=== PATIENT | male | born 1965 | race Caucasian/White ===

== ENCOUNTER 2023-08-26 09:03 | Outpatient (CLI) | payer OTHER, SELFPAY ==
--- NOTE | ~2023-08-26 | XR_ITS ---
EXAMINATION: XR ankle LT min 3V DATE: 08/26/2023 09:30 INDICATION: Left ankle fracture, sequela. Chronic left ankle pain. TECHNIQUE: 5 views of left ankle were obtained. COMPARISON: Left ankle radiographs 05/05/2007 FINDINGS: Bone alignment is normal. No acute fracture. There is diffuse osteopenia. There is an old h ealed fracture of calcaneus with internal fixation with plate and multiple screws. There is mild ankl e joint osteoarthritis. The subtalar joint is obscured by the instrumentation. There is ankle soft ti ssue swelling. IMPRESSION: 1. Mild ankle joint osteoarthritis. Reviewed, dictated and finalized at location A.
== END 2023-08-26 09:04 | disposition home or self-care (01) ==
DX: M19.072 Primary osteoarthritis, left ankle and foot (principal); S82.892S Other fracture of left lower leg, sequela
CPT/HCPCS: 73610

== ENCOUNTER 2023-09-04 11:57 | Outpatient (CLI) | payer OTHER, SELFPAY ==
--- NOTE | ~2023-09-04 | XR_ITS ---
EXAMINATION: XR toe 1st LT min 2V DATE: 09/04/2023 12:19 INDICATION: Left great toe pain, swelling and bruising post injury TECHNIQUE: Dorsal plantar, lateral and 2 oblique views of the left great toe were obtained. COMPARISON: Left foot radiographs dated 05/05/2007 FINDINGS: Diffuse osteopenia. Incompletely visualized internal fixation at the hindfoot likely involving the ca lcaneus with dorsal malleable plate and screws and 4 additional cannulated cancellous screws. No acut e fracture. Polyarticular osteoarthritis, moderate severity at the first interphalangeal joint and mi ld at the left ankle and majority of the remaining joints in the visualized left foot. IMPRESSION: 1. Incompletely visualized internal fixation at the left calcaneus. No evident acute osseous abnormal ity. 2. Mild to moderate polyarticular osteoarthritis throughout the left foot and ankle greatest at the f irst interphalangeal joint. Reviewed, dictated and finalized at location A. IMPRESSION: 1. Incompletely visualized internal fixation at the left calcaneus. No evident acute osseous abnormality. 2. Mild to moderate polyarticular osteoarthritis throughout the left foot and a nkle greatest at the first interphalangeal joint.
== END 2023-09-04 11:58 | disposition home or self-care (01) ==
LOC: ANHIMG 12:01
PROVIDERS: Visit Provider Internal Medicine
DX: M19.072 Primary osteoarthritis, left ankle and foot (principal)
CPT/HCPCS: 73660

== ENCOUNTER 2023-09-11 12:11 | Observation (INO) | payer OTHER, SELFPAY ==
[2023-09-11] VITALS (16 sets, daily range): BP systolic 122–174; BP diastolic 77–154; PULSE 62–90; RESP 16–19; TEMP 36.2–36.9; O2SAT 90–100; BMI 31.3
--- NOTE | ~2023-09-11 | XR_ITS ---
Portable chest x-ray Comparison: 10/23/2016 Clinical History: Cough Findings: Stable probable basilar scarring. No other consolidation or pleural effusion evident. Car diomediastinal silhouette is stable. Bones and soft tissues are unremarkable. Impression: No definite acute abnormality. Probable left basilar scarring, similar to prior exam. Reviewed, dictated and finalized at [facility]. Impression: No definite acute abnormality. Probable left basilar scarring, similar to prior exam.
[2023-09-11] MEDS: ALBUTEROL SULFATE NEB 2.5 MG/3 ML INH 15 MG INHALATION (12:55)
[2023-09-11] MEDS: IPRATROPIUM BR 0.02% INH SOLN 0.5 MG/2.5 ML VIAL 1 MG INHALATION (12:55)
[2023-09-11 13:04] LABS: Basophils Percent Auto 0.2 % (0.2-1.2); Eosinophils Absolute Auto 0.1 K/mm3 (0-0.3); Hematocrit 43.4 % (42.0-52.0); Hemoglobin 13.6 g/dL (14.0-18.0); Immature Granulocyte Absolute 0.05 K/mm3 (0.00-0.031); Immature Granulocyte Percent A 0.8 % (0-0.5); Lymphocytes Absolute Auto 1.73 K/mm3 (0.9-3.2); Lymphocytes Percent Auto 28.9 % (18.3-44.2); Mean Corpuscular HGB Conc 31.3 g/dl (32-36); Mean Corpuscular Hemoglobin 28.2 pg (26-34); Mean Corpuscular Volume 89.9 fl (80-100); Mean Platelet Volume 8.7 fl (7.4-10.4); Monocytes Absolute Auto 0.4 K/mm3 (0.1-0.6); Monocytes Percent Auto 6.7 % (2.6-8.5); Neutrophils Absolute Auto 3.7 K/mm3 (1.3-6.7); Neutrophils Percent Auto 62.4 % (45.5-73.1); Platelet Count Result 268 k/mm3 (150-375); Red Blood Count 4.83 M/mm3 (4.6-6.20); Red Cell Distribution Width 13.9 % (11.5-14.5)
[2023-09-11] MEDS: predniSONE 20 MG TABLET 40 MG PO (13:07)
[2023-09-11 13:13] LABS: Anion Gap 5 mmol/L (4-12); Blood Urea Nitrogen 16 mg/dL (9-20); Calcium 8.6 mg/dL (8.4-10.2); Carbon Dioxide 29 mmol/L (22-30); Chloride 104 mmol/L (98-107); Estimated CRCL calculation 116 ml/min; Estimated Glomerular Filt Rate > 60; Glucose 103 mg/dL (65-110); Potassium 4.4 mmol/L (3.4-5.0); Sodium 138 mmol/L (137-145)
--- NOTE | 2023-09-11 13:16 | ED.URI ---
HPI - URI/Sore Throat General Chief Complaint: Upper Respiratory Infection Stated Complaint: congestion Time Seen by Provider: 09/11/23 12:40 History of Present Illness HPI Narrative: Patient presenting with URI symptoms for the last few days including cough and wheezing with productive cough that has started improving, he does have history of COPD, was found to have low oxygen so sent to the ER Related Data Allergies Allergy/AdvReac Type Severity Reaction Status Date / Time risperidone Allergy Intermediate Anxiety Verified 01/15/17 11:04 No Known Allergies Allergy Unverified 06/17/11 09:41 Review of Systems Review of Systems: All systems reviewed & are unremarkable except as noted in HPI and below PMFSH Family History Family History (Updated 12/16/16 @ 10:35 by DOCTOR UNKNOWN) Mother Patient's mother is in good health Sibling Patient's sister is in good health Patient's brother is in good health Father Family history of malignant neoplasm Other Family history of mental disorder Hypertension Social History Social History Smoking status: Never smoker Smoking end date: 04/27/06 Alcohol intake: never Exam Narrative: EXAMINATION OF ORGAN SYSTEMS/BODY AREAS: Constitutional: Vital signs per nursing GENERAL:[No acute distress, non-toxic appearing.] HEAD: Normal with no signs of head trauma. EYES: EOMI, conjunctiva normal ENT: Hearing grossly intact LUNGS: Coarse lung sounds with end expiratory wheezing HEART: [Regular rate and rhythm] ABD: [Soft], [nontender to palpation] EXT: Normal range of motion SKIN: [No rashes or lesions.] NEURO: [Alert and oriented x 3. No gross focal sensory or strength deficits.] PSYCH: Normal affect Course Vital Signs Vital signs: Vital Signs Temperature 98.4 F 09/11/23 12:13 Pulse Rate 76 09/11/23 12:13 Respiratory Rate 18 09/11/23 12:13 Blood Pressure 142/77 H 09/11/23 12:13 Pulse Oximetry 95 09/11/23 12:13 Oxygen Delivery Room Air 09/11/23 12:13 Temperature 98.4 F 09/11/23 12:13 Pulse Rate 88 09/11/23 16:31 Respiratory Rate 16 09/11/23 16:31 Blood Pressure 140/81 09/11/23 16:31 Pulse Oximetry 94 09/11/23 16:31 Oxygen Delivery Nasal Cannula 09/11/23 13:00 Oxygen Flow Rate 1 09/11/23 13:00 MDM - URI/Sore Throat MDM Narrative Medical decision making narrative: ED COURSE AND MEDICAL DECISION MAKIN) Differential diagnosis: COPD, pneumonia 2) Comorbidities: COPD, fentanyl use disorder 3) External notes reviewed: PCP notes 4) History sources independently obtained from: Dr. Zayas 5) Discussion of management with: Hospitalist 6) Independent interpretation of: Chest x-ray, no obvious consolidations 7) Diagnostic tests or therapies considered but not ordered: N/a 8) Social determinants of health: n/a 9) Shared decision makin-year-old male with acute dyspnea and wheezing likely due to acute COPD exacerbation based on history and exam. Patient is hemodynamically stable. Nebulizer treatments are started and steroids given orally. Patient monitored in the ED for a couple of hours and on reevaluation is feeling significantly better. No respiratory distress or accessory muscle use. Good air movement bilateral lungs. He unfortunately is still slightly hypoxic requiring 2 L of nasal cannula to maintain saturation above 92%. Discussed with hospitalist for admission. Lab Data 09/11/23 12:57 09/11/23 12:57 Labs: Lab Results 09/11/23 09/11/23 Range/Units 12:45 12:57 WBC 6.0 (4.5-10.0) K/mm3 RBC 4.83 (4.6-6.20) M/mm3 Hgb 13.6 L (14.0-18.0) g/dL Hct 43.4 (42.0-52.0) % MCV 89.9 (80-100) fl MCH 28.2 (26-34) pg MCHC 31.3 L (32-36) g/dl RDW 13.9 (11.5-14.5) % Plt Count 268 (150-375) k/mm3 MPV 8.7 (7.4-10.4) fl Immature Gran % (Auto) 0.8 H (0-0.5) % Neut % (Auto) 62.4 (45.5-73.1) % Lymph % (Auto) 28.9 (18
[2023-09-11 13:24] LABS: Influenza A QL RT-PCR Negative (Negative); Influenza B QL RT-PCR Negative (Negative); RSV RNA, RT-PCR Negative (Negative); SARS-CoV-2 RNA PCR Negative (Negative)
[2023-09-11] MEDS: AZITHROMYCIN 250 MG TABLET 500 MG PO (15:40)
[2023-09-11] MEDS: BUPRENORPHINE HCL (*CRX) 2 MG SUBLINGUAL TABLET 8 MG PO (16:01)
--- NOTE | 2023-09-11 18:16 | ADMGEN ---
This patient, Kendell Clemons, was admitted to 3 [facility] Surg Room 315-02. Patient/family oriented to hospital policies and general routines including ID bracelet, bed and alarms, visiting hours, pain management, procedures, bathroom and other care routines, personal items, smoking policy, room service/diet, and visiting hours. Information on how to activate the Rapid Response Team has been discussed. Patient/Family are encouraged to report perceived risks to care and to ask questions if they do not understand what they are told or what they should do.
--- NOTE | 2023-09-11 20:43 | ECG_ITS ---
SEE SCANNED COPY FOR CONFIRMED REPORT MTDD
[2023-09-11] MEDS: GABAPENTIN 400 MG CAPSULE PO (21:36)
[2023-09-11] MEDS: BUPRENORPHINE/NALOXONE (*CRX) 4 MG/1 MG SL FILM 2 EACH SUBLINGUAL (21:37)
[2023-09-11] MEDS: NICOTINE (*PBKC) 4 MG GUM PO (21:37)
[2023-09-11] MEDS: QUEtiapine FUMARATE XR 50 MG TAB.ER.24H 150 MG PO (21:40)
[2023-09-12] VITALS (11 sets, daily range): BP systolic 134–142; BP diastolic 79–84; PULSE 70–88; RESP 12–20; TEMP 36.1–37.2; O2SAT 93–98
--- NOTE | 2023-09-12 06:24 | PM.IMHP ---
H&P: HPI History of Present Illness Date/Time: 09/12/23 06:24 Chief Complaint: Cough and congestion Narrative: 58-year-old male with a past medical history of opiate abuse, COPD, essential hypertension, GERD, anxiety and depression who presented to the ER from chest [facility] inpatient rehab due to cough congestion and shortness of breath. The patient states that he has been coughing up brown sputum and coughing more for the last 4-5 days. Over the last 2 days his sputum has changed to a clear color. Is been accompanied by increasing shortness of breath over the last couple of days. He denies having any fevers or chills. He mentioned his symptoms to the provider at the rehab facility and they checked his oxygen saturations was were low and he was sent to the ER. There was no true hypoxia noted in the ER with a sats being at least 90% on room air. However bruise noted to be wheezing significantly. Chest x-ray performed in the ER was negative for obvious pneumonia and patient white count was normal. He was admitted for acute bronchitis complicating COPD. The patient reports that he has been and acute inpatient rehab for opiate abuse for approximately 2 weeks. He developed a opiate abuse issue after he fell off a ladder and fractured his calcaneus requiring placement of 8 screws and 2 plates. He has chronic pain radiating up the back of his left leg into his popliteal fossa. He reports the pain is severe. He has to use a knee scooter for ambulation. He and his are currently due to his substance abuse. Review of Systems Review of Systems: 12 systems were reviewed with pertinent positives and negatives per HPI. Except as documented in the HPI, all other systems were reviewed and are negative. [facility] Past Medical History Medical History (Updated 09/12/23 @ 06:59 by Mirna Miranda DO) Anxiety and depression Attention deficit disorder Bipolar II disorder BPH (benign prostatic hyperplasia) COPD (chronic obstructive pulmonary disease) Erectile dysfunction Essential hypertension GERD (gastroesophageal reflux disease) Hyperlipidemia Idiopathic neuropathy Migraine Narcotic abuse in remission Paroxysmal A-fib He had 1 occurrence of AFib a resolved with medications. He is not chronic anticoagulation. Surgical History Surgical History History of appendectomy (1971) Status post open reduction with internal fixation of fracture (~2021) Left calcaneal fracture Family History Family History Mother Alcoholism Sibling Patient's sister is in good health Patient's brother is in good health Father Family history of malignant neoplasm Other Family history of mental disorder Hypertension Social History Social History (Updated 09/12/23 @ 06:56 by Mirna Miranda DO) Social History: Patient is currently from his . 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 He has been unable to work since he broke his left calcaneus had to have surgery. He used to smoke a 0.5 packs of cigarettes per day from the time he was a teenager until June 2023. He denies any history of alcohol abuse. He has developed an issue with opiate abuse since his injury in 2021. Code status: Full code Surrogate decision maker: Mariah () Smoking packs per day: 0.5 Smoking cigarettes per day: 10.0 Years smoked: 15 Smoking pack-years: 7.50 Smoking status: Current every day smoker Tobacco type: cigarettes Smoking end date: 04/27/06 Alcohol intake: never Substance use: current Substance use type: other Other substance usage details: fentanyl 4/; suboxone 8mg TID current Do You Feel Safe in your Home?: Yes Lack of Transportation: No Lack of Food: Never True Current Housing: I Have Housing Concerned About Future Housing: No Difficul
[2023-09-12] MEDS: methylPREDNISolone SOD SUCC 40 MG VIAL IV PUSH ×3 (06:58→20:41)
[2023-09-12] MEDS: NICOTINE (*PBKC) 4 MG GUM PO ×4 (07:02→20:41)
[2023-09-12 07:03] LABS: Basophils Percent Auto 0.3 % (0.2-1.2); Eosinophils Percent Auto 0.3 % (0-4.4); Hematocrit 40.6 % (42.0-52.0); Hemoglobin 12.7 g/dL (14.0-18.0); Immature Granulocyte Absolute 0.05 K/mm3 (0.00-0.031); Immature Granulocyte Percent A 0.7 % (0-0.5); Lymphocytes Absolute Auto 2.73 K/mm3 (0.9-3.2); Lymphocytes Percent Auto 36.6 % (18.3-44.2); Mean Corpuscular HGB Conc 31.3 g/dl (32-36); Mean Corpuscular Volume 89.6 fl (80-100); Mean Platelet Volume 9.1 fl (7.4-10.4); Monocytes Absolute Auto 0.9 K/mm3 (0.1-0.6); Monocytes Percent Auto 11.5 % (2.6-8.5); Neutrophils Absolute Auto 3.8 K/mm3 (1.3-6.7); Neutrophils Percent Auto 50.6 % (45.5-73.1); Platelet Count Result 299 k/mm3 (150-375); Red Blood Count 4.53 M/mm3 (4.6-6.20); Red Cell Distribution Width 13.6 % (11.5-14.5); White Blood Count 7.5 K/mm3 (4.5-10.0)
[2023-09-12 07:14] LABS: Anion Gap 4 mmol/L (4-12); Blood Urea Nitrogen 19 mg/dL (9-20); Calcium 8.3 mg/dL (8.4-10.2); Carbon Dioxide 29 mmol/L (22-30); Chloride 103 mmol/L (98-107); Estimated CRCL calculation 117 ml/min; Estimated Glomerular Filt Rate > 60; Glucose 94 mg/dL (65-110); Potassium 3.9 mmol/L (3.4-5.0); Sodium 136 mmol/L (137-145)
[2023-09-12] MEDS: ALBUTEROL SULFATE NEB 2.5 MG/3 ML INH 5 MG INHALATION ×3 (08:33→20:12)
[2023-09-12] MEDS: IPRATROPIUM BR 0.02% INH SOLN 0.5 MG/2.5 ML VIAL INHALATION ×3 (08:34→20:13)
--- NOTE | 2023-09-12 08:41 | PM.IMPN ---
Progress Note: A&P Assessment and Plan (1) COPD exacerbation: Code(s): J44.1 - Chronic obstructive pulmonary disease with (acute) exacerbation Status: Acute Assessment and Plan: Patient does not have leukocytosis or fever. Pneumonia is less likely. Physical exam findings most consistent with COPD exacerbation. Patient received 1 dose of prednisone in the ER and 1 nebulizer treatment. - scheduled nebulizers and place patient on IV Solu-Medrol 40 mg q.8 hours. - antibiotic therapy given initial review of chest x-ray from ER provider but pneumonia not present on official radiologic interpretation. Given the patient's report of acute brown sputum production and continued coarse lungs sounds and expiratory wheezing underlying pneumonia still may be possible. Antibiotics continued at this time. - Rocephin 1 g daily (09/11-) - Azithromycin 500 mg daily (09/11-) (2) Narcotic abuse in remission: Code(s): F11.11 - Opioid abuse, in remission Status: Acute Assessment and Plan: Continue Suboxone. Unfortunately we do not have the doses the patient is usually on so 2 separate doses have been ordered. Absorption can be slightly increased using the 2 smaller doses but will have to monitor closely. Will also continue home Neurontin. (3) Bipolar II disorder: Code(s): F31.81 - Bipolar II disorder Status: Acute Assessment and Plan: Well controlled on home medications. - continue hydroxyzine, Seroquel, and duloxetine. (4) Anxiety and depression: Code(s): F41.9 - Anxiety disorder, unspecified; F32.A - Depression, unspecified Status: Acute Assessment and Plan: Well controlled on home medications. - continue hydroxyzine, Seroquel, and duloxetine. (5) Essential hypertension: Code(s): I10 - Essential (primary) hypertension Status: Acute Assessment and Plan: Chronic, stable on home medications. - Continue Norvasc and metoprolol Time Spent With Patient Time with patient: 25 - 35 minutes Subjective Date/time seen: 09/12/23 08:41 Interval history: 58-year-old male with a past medical history of opiate abuse, COPD, essential hypertension, GERD, anxiety and depression who presented to the ER from chest [facility] mental [facility] inpatient rehab due to cough congestion and shortness of breath. Patient is pleasant lying in bed in no acute distress. He continues to endorse mild shortness of breath that is exacerbated with activity. He is able to speak full sentences and requires no oxygen supplementation. He reports a productive cough of brown sputum. He notes his shortness of breath has been ongoing for 1 week and has associated chest pain. EKG unremarkable. He denies chest pain and palpitations on assessment. Patient remains on antibiotics at this time for possible underlying pneumonia. Patient to discharge back to [place]. Care coordination to facilitate. Review of Systems Review of Systems: All systems reviewed & are unremarkable except as noted in HPI and below Exam Narrative: AF HR 84 RR 16 SpO2 98 BP 142/84 General: well nourished, well-developed male in no acute respiratory distress who is nontoxic appearing, lying semi recumbent in bed. HEENT: Normocephalic. Atraumatic. Pupils equal round reactive to light. Extraocular movement intact. Sclera clear and anicteric. Nares patent. No oral lesions. Moist mucous membranes. Tongue is midline. Palate wendi symmetrically. No facial asymmetry. Chest: Lungs are coarse to auscultation bilaterally that clears with cough. Expiratory wheezing. No crackles. CV: Heart was regular rate and rhythm. S1/S2. No murmurs, gallops, or rubs. Abd: Abdomen was soft. Nontender. Nondistended. Positive bowel sounds. No organomegaly or masses. Ext: No clubbing, cyanosis, or edema. 2+ DP pulses bilaterally. Neuro: Patient is alert and oriented x4. Strenth is 5/5 in both upper and lower extremities. Cranial nerves 2-12 are intact. Speech i
[2023-09-12] MEDS: GABAPENTIN 400 MG CAPSULE PO ×2 (09:44→18:16)
[2023-09-12] MEDS: DULoxetine HCL 30 MG CAPSULE.DR 90 MG PO (09:44)
[2023-09-12] MEDS: MULTIVITAMINS THERAPEUTIC TAB (*BKC) 1 TABLET PO (09:44)
[2023-09-12] MEDS: BUPRENORPHINE/NALOXONE (*CRX) 4 MG/1 MG SL FILM 2 EACH SUBLINGUAL ×3 (09:44→18:15)
[2023-09-12] MEDS: FAMOTIDINE 20 MG TABLET PO (09:45)
[2023-09-12] MEDS: FLUTICASONE PROPIONATE 0.05% NA SPR 16 GM BTL (*BKC) 2 SPRAY NASAL (09:45)
[2023-09-12] MEDS: amLODIPine BESYLATE 5 MG TABLET PO (09:45)
[2023-09-12] MEDS: METOPROLOL SUCCINATE EXT REL 50 MG TABCR PO (09:45)
[2023-09-12] MEDS: ENOXAPARIN 40 MG/0.4 ML SYRINGE SUB-Q (09:45)
[2023-09-12] MEDS: LORATADINE 10 MG TABLET PO (09:45)
--- NOTE | 2023-09-12 14:00 | ECG_ITS ---
SEE SCANNED COPY FOR CONFIRMED REPORT MTDD
[2023-09-12] MEDS: AZITHROMYCIN 500 MG/NS 250 ML 500 MG/250 ML BAG 250 MG IVPB (18:16)
[2023-09-12] MEDS: QUEtiapine FUMARATE XR 50 MG TAB.ER.24H 150 MG PO (20:34)
[2023-09-13] MEDS: IPRATROPIUM BR 0.02% INH SOLN 0.5 MG/2.5 ML VIAL INHALATION ×3 (02:34→12:52)
[2023-09-13 02:35] VITALS: PULSE 81; RESP 20
[2023-09-13] MEDS: ALBUTEROL SULFATE NEB 2.5 MG/3 ML INH 5 MG INHALATION ×3 (02:35→12:52)
[2023-09-13 02:44] VITALS: PULSE 80; RESP 18
[2023-09-13 05:22] VITALS: BP 126/75; PULSE 88; RESP 18; TEMP 36.4; O2SAT 94
[2023-09-13] MEDS: methylPREDNISolone SOD SUCC 40 MG VIAL IV PUSH ×2 (06:45→13:08)
[2023-09-13] MEDS: NICOTINE (*PBKC) 4 MG GUM PO ×3 (06:47→13:04)
[2023-09-13 08:03] VITALS: PULSE 82; RESP 18
[2023-09-13] MEDS: DULoxetine HCL 30 MG CAPSULE.DR 90 MG PO (08:36)
[2023-09-13 08:37] VITALS: PULSE 88
[2023-09-13] MEDS: METOPROLOL SUCCINATE EXT REL 50 MG TABCR PO (08:37)
[2023-09-13] MEDS: BUPRENORPHINE/NALOXONE (*CRX) 4 MG/1 MG SL FILM 2 EACH SUBLINGUAL ×2 (08:37→13:05)
[2023-09-13] MEDS: amLODIPine BESYLATE 5 MG TABLET PO (08:37)
[2023-09-13] MEDS: GABAPENTIN 400 MG CAPSULE PO (08:37)
[2023-09-13] MEDS: FAMOTIDINE 20 MG TABLET PO (08:38)
[2023-09-13] MEDS: MULTIVITAMINS THERAPEUTIC TAB (*BKC) 1 TABLET PO (08:38)
[2023-09-13] MEDS: LORATADINE 10 MG TABLET PO (08:38)
[2023-09-13] MEDS: FLUTICASONE PROPIONATE 0.05% NA SPR 16 GM BTL (*BKC) 2 SPRAY NASAL (08:41)
[2023-09-13] MEDS: ENOXAPARIN 40 MG/0.4 ML SYRINGE SUB-Q (08:47)
[2023-09-13 12:53] VITALS: PULSE 80; RESP 18
[2023-09-13] MEDS: AZITHROMYCIN 500 MG/NS 250 ML 500 MG/250 ML BAG 250 MG IVPB (13:02)
--- NOTE | 2023-09-13 13:45 | PM.DS ---
DS: Admitting Diagnosis Discharge Date 09/13/2023 Admitting Diagnosis COPD exacerbation Narcotic abuse in remission Bipolar II disorder Anxiety and depression Essential hypertension DS: Discharge Diagnosis Discharge Diagnosis (1) COPD exacerbation: Code(s): J44.1 - Chronic obstructive pulmonary disease with (acute) exacerbation Status: Acute (2) Narcotic abuse in remission: Code(s): F11.11 - Opioid abuse, in remission Status: Acute (3) Bipolar II disorder: Code(s): F31.81 - Bipolar II disorder Status: Acute (4) Anxiety and depression: Code(s): F41.9 - Anxiety disorder, unspecified; F32.A - Depression, unspecified Status: Acute (5) Essential hypertension: Code(s): I10 - Essential (primary) hypertension Status: Acute DS: Summary Hospital Course Reason for hospitalization: COPD exacerbation Narcotic abuse in remission Bipolar II disorder Anxiety and depression Essential hypertension Hospital Course: 58-year-old male with a past medical history of opiate abuse, COPD, essential hypertension, GERD, anxiety and depression who presented to the ER from [facility] inpatient rehab due to cough congestion and shortness of breath. Chest XR revealed no definite acute abnormality however given patients symptoms of brown sputum, cough, coarse lung sounds and expiratory wheezing he was started on IV antibiotics and received a dose of IV steroids. Patient did not have leukocytosis or fever during admission. At time of discharge patient stated improvement of symptoms. He will remain on Augmentin and azithromycin to complete his antibiotic course at time of discharge. [facility]. He will complete his antibiotics as prescribed and follow up with his PCP in 1 week. Status at Discharge Functional status at discharge: independent ambulation Time Spent with Patient Time attestation: Total time spent providing and/or coordinating discharge services: Time spent: Greater than 30 minutes Exam Narrative: AF HR 88 RR 18 SpO2 94 BP 126/75 General: well nourished, well-developed male in no acute respiratory distress who is nontoxic appearing, lying semi recumbent in bed. HEENT: Normocephalic. Atraumatic. Pupils equal round reactive to light. Extraocular movement intact. Sclera clear and anicteric. Nares patent. No oral lesions. Moist mucous membranes. Tongue is midline. Palate wendi symmetrically. No facial asymmetry. Chest: Lungs are coarse to auscultation bilaterally that clears with cough. Expiratory wheezing improving. No crackles. CV: Heart was regular rate and rhythm. S1/S2. No murmurs, gallops, or rubs. Abd: Abdomen was soft. Nontender. Nondistended. Positive bowel sounds. No organomegaly or masses. Ext: No clubbing, cyanosis, or edema. 2+ DP pulses bilaterally. Neuro: Patient is alert and oriented x4. Strength is 5/5 in both upper and lower extremities. Cranial nerves 2-12 are intact. Speech is clear. Psych: Normal mood and affect. Patient is pleasant and cooperative. Skin: Warm and dry. No rashes noted. DS: Data Data Completed and Pending Completed studies during hospitalization: Chest XR Discharge Plan Discharge Attending physician on discharge: Curtis Andrade Discharging Clinician: Linsey Tavarez Anticipated Discharge Date/Time: 09/12/23 14:06 Patient Disposition: Home, Self-Care Activity: as tolerated Diet: as tolerated Discharge Instructions: You were seen at the hospital for cough, congestion and shortness of breath. A chest xray was obtained and showed no definitive abnormality. Your symptoms were likely related to a COPD exacerbation, however given your symptoms you were started on antibiotics for the possibility of underlying pneumonia. You will continue these antibiotics at time of discharge. Attached is information on the antibiotics. Complete this antibiotic course in
== END 2023-09-13 14:20 | disposition home or self-care (01) ==
LOC: ANHED 13:02 → ANH3MEDSUR 17:30
PROVIDERS: Internal Medicine; Admitting Provider General Practice; Emergency Provider Emergency Medicine; PCP Internal Medicine; Visit Provider Internal Medicine
DX: J44.1 Chronic obstructive pulmonary disease with (acute) exacerbation (principal); I10 Essential (primary) hypertension; K21.9 Gastro-esophageal reflux disease without esophagitis; F41.9 Anxiety disorder, unspecified; F31.9 Bipolar disorder, unspecified; N40.0 Benign prostatic hyperplasia without lower urinary tract symptoms; E78.5 Hyperlipidemia, unspecified; G60.9 Hereditary and idiopathic neuropathy, unspecified; F98.8 Other specified behavioral and emotional disorders with onset usually occurring in childhood and adolescence; F11.20 Opioid dependence, uncomplicated; Z87.891 Personal history of nicotine dependence; Z79.51 Long term (current) use of inhaled steroids; Z20.822 Contact with and (suspected) exposure to COVID-19
CPT/HCPCS: 36415; 71045; 80048; 85025; 87637; 93005; 94640; 96365; 96372; 96374; 96375; 96376; 99285; A9270; G0378; G0379; J0456; J0696; J1650; J2919; J7512